=== PATIENT | male | born 1980 | race Caucasian/White ===

== ENCOUNTER 2022-02-21 06:06 | Day surgery (SDC) | payer BC ==
[~2022-02-21 06:06] MED LIST: Lactated Ringers 1,000 ML IV SCH
[2022-02-21] MEDS ORDERED: Lactated Ringers 1,000 ML IV ONE (06:07)
[2022-02-21] MEDS ORDERED: Versed 2 MG/2 ML Injection ONE (07:41)
[2022-02-21] MEDS ORDERED: DIPRIVAN 200 MG/20 ML IV ONE ×2 (07:41→08:09)
[2022-02-21 08:39] VITALS: BP 112/73; PULSE 60; O2SAT 100
--- NOTE | 2022-02-21 12:47 | OP ---
SURGERY DATE/TIME: 02/21/2022 0745 PREOPERATIVE DIAGNOSIS: Change in bowel habits and mucousy stools. POSTOPERATIVE DIAGNOSIS: Sigmoid colitis. PROCEDURE: Colonoscopy with cold forceps biopsy. SURGEON: Dr. Filiberto Marrero. ANESTHESIA: MAC. Medications given by anesthesia department. HISTORY: The patient is a 41-year-old white male patient presenting with a change in bowel habits. He reports there have been no other changes. He used to go once every two to three days and now he is going several times a day with mucous in the stool but no blood. He reports a family history of colitis. The patient was felt the need to have endoscopic evaluation. He was described the risks of the procedure including the risk of perforation, phlebitis, untoward reaction to medication, bleeding and missed lesions. The patient verbalized his understanding and desired to have the procedure performed. DESCRIPTION OF PROCEDURE: The patient was given the medications by the anesthesia department. He had continuous pulse oximetry, ECG monitoring, intermittent blood pressure monitoring during the examination. He was placed in the left lateral decubitus position. A digital rectal examination was performed and revealed normal anal sphincter tone, no masses. The flexible Olympus pediatric colonoscope was used to intubate the rectum. A view of the colon was developed sequentially to the cecum including approximately 20 cm in the terminal ileum. Upon insertion and withdrawal, including a retroflex view in the rectum was noted to be some irritation in the sigmoid colon and this is biopsied using cold biopsy technique to rule out the presence of underlying colitis. The scope was removed from the patient who tolerated the procedure well and sent back to OP recovery in good condition. The prep was noted to be fair to good.
== END 2022-02-21 08:43 | disposition home or self-care (01) ==
LOC: SDC 06:06
PROVIDERS: ATTEND Family Medicine
DX: K52.9 Noninfective gastroenteritis and colitis, unspecified (principal); R19.4 Change in bowel habit; R19.5 Other fecal abnormalities; Z83.79 Family history of other diseases of the digestive system
CPT/HCPCS: J2250; J2704

== ENCOUNTER 2024-08-08 09:25 | Emergency (ER) | payer BC ==
[2024-08-08 09:46] VITALS: TEMP 97.5
[2024-08-08 09:54] LABS: Absolute Neutrophil Ct (ANC) 3.04 x10^3/uL (1.78-5.38); BASOPHIL % 0.9 % (0.2-1.2); Basophil (Absolute #) 0.05 x10^3/uL (0.01-0.08); Eosinophil % 1.3 % (0.8-7.0); Eosinophil (Absolute #) 0.07 x10^3/uL (0.04-0.54); Hemoglobin 15.8 g/dL (13.7-17.5); IMMATURE GRAN # 0.01 x10^3u/L (0.001-0.031); IMMATURE GRAN % 0.2 % (0.001-0.429); Lymphocyte (Absolute #) 1.67 x10^3/uL (1.32-3.57); Mean Cell Volume 91.4 fL (79.0-92.2); Mean Corpuscular Hemoglobin 30.7 pg (25.7-32.2); Mean Corpuscular Hgb Concent. 33.6 g/dL (32.3-36.5); Monocyte (Absolute #) 0.55 x10^3/uL (0.30-0.82); Monocytes % 10.2 % (5.3-12.2); Neutrophil % 56.4 % (34.0-67.9); Platelet Count 258 x10^3/uL (163-337); Red Blood Count 5.14 x10^6/uL (4.63-6.08); Red Cell Distribution Width 12.1 % (11.6-14.4); White Blood Count 5.4 x10^3/uL (4.23-9.07)
[2024-08-08 09:59] VITALS: O2SAT 98
[2024-08-08] MEDS ORDERED: BABY ASPIRIN 81 MG CHEW ONE (10:06)
[2024-08-08] MEDS: BABY ASPIRIN 81 MG CHEW PO ONE (10:07)
--- NOTE | 2024-08-08 10:16 | XRAY ---
Indication: Chest pain, worse with inspiration. Comparison: None Portable apical lordotic chest inflated and clear. Heart not enlarged. Bony thorax intact. Impression: Nonacute chest.
[2024-08-08 10:18] LABS: ALBUMIN 4.7 g/dL (3.5-5.0); ALKALINE PHOSPHATASE 55 U/L (38-126); ANION GAP 14.6 MEQ/L (5-15); BLOOD UREA NITROGEN 19 mg/dL (9-20); CHLORIDE 106 mmol/L (98-107); CK-Creatinine Phosphokinase 124 U/L (55-170); Calcium 9.5 mg/dL (8.4-10.2); Carbon Dioxide 25 mmol/L (22-30); Creatinine 1 0.96 mg/dL (0.66-1.25); EST GLOMERULAR FILTRATION RATE 100.6 ML/MIN; Glucose 90 mg/dL (74-106); NT PRO BNPII < 20.0 pg/mL (<300); Potassium 4.1 mmol/L (3.5-5.1); SGOT/AST 35 U/L (17-59); SGPT/ALT 39 U/L (0-50); SODIUM 142 mmol/L (135-145); Total Protein 8.1 g/dL (6.3-8.2)
--- NOTE | 2024-08-08 11:25 | ERPHSYRPT ---
- History of Present Illness Time Seen by Provider: 08/08/24 10:43 Patient Subjective Stated Complaint: PT. STATES, "YESTERDAY EVENING, MY CHEST STARTED HURTING BETWEEN MY RIBCAGE AND GOING INTO THE RIGHT SIDE OF MY BACK.IT HURT WORSE TO TAKE A DEEP BREATH AND I COULDN'T LIE ON MY BACK LAST NIGHT CAUSE IT WAS TOO MUCH PRESSURE. I AM ALSO HAVING SOME SOB WITH INCREASED ACTIVITY WHICH IS WIERD BECAUSE I'M VERY ACTIVE" Triage Nursing Assessment: PT PRESENTS TO ER A&OX4, RESP EVEN UNLABORED, NO E WINNIE. ABLE TO MOVE ALL FOUR EXTREMITIES. Physician History: 44 years old male fairly healthy presented in the ER with complaint of right posterior rib cage area pain started yesterday, aggravated with stretching up, movements and partial relief with being in a certain position. Moderate intensity sharp in nature, today it moved to right anterior/lower chest as well. Reports having some difficulty breathing yesterday especially taking a deep breath because of the pain. Pain is a little better today but still there. Denies any palpitation/racing of the heart or shortness of breath otherwise. No fever chills or cough reported. No history of coronary artery disease, long travel, lower extremity swellings etc. Nitro Today/Relief: no nitro taken today Aspirin Treatment Today: no aspirin today Allergies/Adverse Reactions: No Known Drug Allergies Allergy (Verified 08/08/24 10:05) Hx Tetanus, Diphtheria Vaccination/Date Given: No Hx Influenza Vaccination/Date Given: No Hx Pneumococcal Vaccination/Date Given: No Immunizations Up to Date: No Travel Risk - International Travel Have you traveled outside of the country in past 3 weeks: No - Emerging Infectious Disease Are you exhibiting symptoms associated with any current EIDs: No - Review of Systems Constitutional: No Symptoms Ears, Nose, & Throat: No Symptoms Respiratory: No Symptoms Cardiac: Chest Pain Abdominal/Gastrointestinal: No Symptoms Genitourinary Symptoms: No Symptoms Musculoskeletal: Back Pain Skin: No Symptoms Neurological: No Symptoms Endocrine: No Symptoms Hematologic/Lymphatic: No Symptoms Immunological/Allergic: No Symptoms - Past Medical History Pertinent Past Medical History: No Neurological History: No Pertinent History ENT History: No Pertinent History Cardiac History: High Cholesterol Respiratory History: No Pertinent History Endocrine Medical History: No Pertinent History Musculoskeletal History: No Pertinent History GI Medical History: No Pertinent History History: No Pertinent History Psycho-Social History: No Pertinent History Male Reproductive Disorders: No Pertinent History Other Medical History: no history per anesthesia questionnaire - Past Surgical History Past Surgical History: Yes Neuro Surgical History: No Pertinent History Cardiac: No Pertinent History Respiratory: No Pertinent History Gastrointestinal: No Pertinent History Genitourinary: No Pertinent History Musculoskeletal: Other Male Surgical History: No Pertinent History Other Surgical History: LEFT KNEE SURGERY - Social History Smoking Status: Never smoker Exposure to second hand smoke: No Drug Use: none - Social Determinants of Health Will the patient participate in the screening: Yes Do you worry about a steady place to live?: No Do you have any problems with any of the following?: No known problems In the past 12 months,have you had to go without utilities?: No Transportation Issues: No Has anyone in your support network made you feel unsafe?: No Have you or anyone in your house had to go without enough: No - Nursing Vital Signs Nursing Vital Signs: Initial Vital Signs Temperature 97.5 F 08/08/24 09:29 Pulse Rate 73 08/08/24 09:29 Respiratory Rate 20 08/08/24 09:29 Blood Pressure 127/94 08/08/24 09:29 O2 Sat by Pulse Oximetry 97 08/08/24 09:29 Pain Scale Pain Intensity 0 - Physical Exam General Appearance: no apparent distress Eye Exam: PERRL/EOMI Ears, Nose, Throat Exam: normal ENT inspection Neck Exam: normal inspection, non-tender, supple, full range of motion Respiratory Exam: normal breath sounds, chest tenderness (Right lower posterolateral and anterior chest wall mild tenderness. No crepitus or flail segment.), lungs clear Cardiovascular Exam: regular rate/rhythm, normal heart sounds Gastrointestinal/Abdomen Exam: soft, normal bowel sounds, No tenderness Back Exam: normal inspection, normal range of motion Extremity Exam: normal inspection, normal range of motion Neurologic Exam: alert, oriented x 3, cooperative Skin Exam: normal color SpO2 Interpretation: normal SpO2: 98 O2 Delivery: Room Air - Course EKG Interpreted by Me: RATE ([id number]), Sinus Rhythm, NORMAL AXIS, NORMAL INTERVALS, NORMAL QRS Ordered Tests: Active Orders 24 hr Category Date Time Status Field Reimbursement Manager STAT Care 08/08/24 09:37 Active EKG-ER Only STAT Care 08/08/24 09:35 Active IV Insertion STAT Care 08/08/24 09:35 Active Pulse Oximetry (ED) STAT Care 08/08/24 09:35 Active CHEST 1 VIEW (PORTABLE) Stat Exams 08/08/24 09:36 Completed CBC W DIFF Stat Lab 08/08/24 09:35 Completed CK-Creatinine Phosphokinase Stat Lab 08/08/24 09:35 Completed CMP Stat Lab 08/08/24 09:35 Completed D-DIMER QUANTITATIVE Stat Lab 08/08/24 09:35 Completed LIPASE Stat Lab 08/08/24 09:35 Completed NT PRO BNPII Stat Lab 08/08/24 09:35 Completed TROPONIN Q4H Lab 08/08/24 09:35 Completed TROPONIN Q4H Lab 08/08/24 12:30 Completed TROPONIN Q4H Lab 08/08/24 17:45 Ordered Medication Summary Discontinued Medications Generic Name Dose Route Start Last Admin Trade Name Freq PRN Reason Stop Dose Admin Aspirin 324 mg 08/08/24 10:03 08/08/24 10:07 Aspirin 81 Mg Tab.Chew PO 08/08/24 10:04 324 mg STAT ONE Administration Aspirin Confirm 08/08/24 10:06 Aspirin 81 Mg Tab.Chew Administered 08/08/24 10:07 Dose 324 mg .ROUTE .STK-MED ONE Lab/Rad Data: Laboratory Result Diagrams 08/08/24 09:35 08/08/24 09:35 Laboratory Results 08/08/24 08/08/24 08/08/24 Range/Units 12:30 09:35 09:35 WBC (4.23-9.07) x10^3/uL RBC (4.63-6.08) x10^6/uL Hgb (13.7-17.5) g/dL Hct (40.1-51.0) % MCV (79.0-92.2) fL MCH (25.7-32.2) pg MCHC (32.3-36.5) g/dL RDW (11.6-14.4) % Plt Count (163-337) x10^3/uL MPV (9.4-12.4) fL Gran % (34.0-67.9) % Immature Gran % (Auto) (0.001-0.429) % Nucleat RBC Rel Count (0.00-0.2) % Eos # (Auto) (0.04-0.54) x10^3/uL Immature Gran # (Auto) (0.001-0.031) x10^3u/L Absolute Lymphs (auto) (1.32-3.57) x10^3/uL Absolute Monos (auto) (0.30-0.82) x10^3/uL Absolute Nucleated RBC (0.00-0.012) x10^3u/L Lymphocytes % (21.8-53.1) % Monocytes % (5.3-12.2) % Eosinophils % (0.8-7.0) % Basophils % (0.2-1.2) % Absolute Granulocytes (1.78-5.38) x10^3/uL Basophils # (0.01-0.08) x10^3/uL D-Dimer (0.0-0.50) mg/L Sodium (135-145) mmol/L Potassium (3.5-5.1) mmol/L Chloride (98-107) mmol/L Carbon Dioxide (22-30) mmol/L Anion Gap (5-15) MEQ/L BUN (9-20) mg/dL Creatinine (0.66-1.25) mg/dL Estimated GFR ML/MIN Glucose (74-106) mg/dL Calcium (8.4-10.2) mg/dL Total Bilirubin (0.2-1.3) mg/dL AST (17-59) U/L ALT (0-50) U/L Alkaline Phosphatase (38-126) U/L Creatine Kinase (55-170) U/L Troponin I < 0.012 < 0.012 (0.000-0.033) ng/mL NT-Pro-B Natriuret Pep (<300) pg/mL Serum Total Protein (6.3-8.2) g/dL Albumin (3.5-5.0) g/dL Lipase 72 (23-300) U/L 08/08/24 08/08/24 08/08/24 Range/Units 09:35 09:35 09:35 WBC 5.4 (4.23-9.07) x10^3/uL RBC 5.14 (4.63-6.08) x10^6/uL Hgb 15.8 (13.7-17.5) g/dL Hct 47.0 (40.1-51.0) % MCV 91.4 (79.0-92.2) fL MCH 30.7 (25.7-32.2) pg MCHC 33.6 (32.3-36.5) g/dL RDW 12.1 (11.6-14.4) % Plt Count 258 (163-337) x10^3/uL MPV 10.0 (9.4-12.4) fL Gran % 56.4 (34.0-67.9) % Immature Gran % (Auto) 0.2 (0.001-0.429) % Nucleat RBC Rel Count 0.0 (0.00-0.2) % Eos # (Auto) 0.07 (0.04-0.54) x10^3/uL Immature Gran # (Auto) 0.01 (0.001-0.031) x10^3u/L Absolute Lymphs (auto) 1.67 (1.32-3.57) x10^3/uL Absolute Monos (auto) 0.55 (0.30-0.82) x10^3/uL Absolute Nucleated RBC 0.00 (0.00-0.012) x10^3u/L Lymphocytes % 31.0 (21.8-53.1) % Monocytes % 10.2 (5.3-12.2) % Eosinophils % 1.3 (0.8-7.0) % Basophils % 0.9 (0.2-1.2) % Absolute Granulocytes 3.04 (1.78-5.38) x10^3/uL Basophils # 0.05 (0.01-0.08) x10^3/uL D-Dimer 0.26 (0.0-0.50) mg/L Sodium 142 (135-145) mmol/L Potassium 4.1 (3.5-5.1) mmol/L Chloride 106 (98-107) mmol/L Carbon Dioxide 25 (22-30) mmol/L Anion Gap 14.6 (5-15) MEQ/L BUN 19 (9-20) mg/dL Creatinine 0.96 (0.66-1.25) mg/dL Estimated GFR 100.6 ML/MIN Glucose 90 (74-106) mg/dL Calcium 9.5 (8.4-10.2) mg/dL Total Bilirubin 1.20 (0.2-1.3) mg/dL AST 35 (17-59) U/L ALT 39 (0-50) U/L Alkaline Phosphatase 55 (38-126) U/L Creatine Kinase 124 (55-170) U/L Troponin I (0.000-0.033) ng/mL NT-Pro-B Natriuret Pep < 20.0 (<300) pg/mL Serum Total Protein 8.1 (6.3-8.2) g/dL Albumin 4.7 (3.5-5.0) g/dL Lipase (23-300) U/L - Progress Progress: improved, re-examined Air Movement: good Progress Note: 08/08/24 13:13 44 years old is evaluated in the ER for right sided chest wall pain since yesterday. Pain is more of a positional and reproducible with stretching back, does have some chest wall tenderness. EKG is sinus rhythm with no ST elevations. He is given aspirin, offered pain medications which he declined. Patient has negative troponins x 2. Negative D-dimers. Normal white count, unremarkable chemistries. Chest x-ray negative for any acute cardiopulmonary findings. Also has negative lipase. Low heart score. I believe patient's pain is more of a musculoskeletal, will give him NSAIDs and muscle relaxants to go ho me and outpatient follow-up recommended. Discussed signs symptoms of worsening needing return to ER which she seems understanding. Blood Culture(s) Obtained: No Antibiotics given: No Counseled pt/family regarding: lab results, diagnosis, need for follow-up, rad results Medical Desision Making - Diagnostic Testing Diagnostic test were ordered, analyzed, and reviewed by me: Yes Radiological Interpretation: Reviewed by me - Risk of complications The pt has a mod risk of morbidity or mortality based on: Need for prescription drug management - Departure Departure Disposition: Home Clinical Impression: Right-sided chest wall pain Condition: Stable Critical Care Time: No Referrals: ALBA EVANS MD [Primary Care Provider] - Follow up with PCP 1 day PRAKASH LOOMIS [CONSULTING PHYSICIAN] - Follow up other (Call tomorrow for appointment for reevaluation) Instructions: Angina (DC), Chest Pain (DC) Additional Instructions: Take pain medications as needed. Follow-up with primary care for reevaluation. Return to ER for worsening chest pain or if having difficulty breathing, racing of the heart etc. Prescriptions: Methocarbamol [Robaxin] 750 mg PO QID 10 Days #30 tablet Diclofenac Sodium 50 mg [Voltaren 50 mg] 50 mg PO TID PRN 10 Days #25 tablet PRN Reason: Pain
[2024-08-08 13:21] VITALS: BP 116/82; PULSE 75; RESP 15
== END 2024-08-08 13:30 | disposition home or self-care (01) ==
LOC: ED 09:25
DX: R07.89 Other chest pain (principal); E78.5 Hyperlipidemia, unspecified; Z79.899 Other long term (current) drug therapy
CPT/HCPCS: 36415; 71045; 80053; 82550; 83690; 83880; 84484; 85025; 85379; 93005; 93041; 94760; 99284; 99285; A9270-GY